=== PATIENT | male | born 1950 | race Caucasian/White ===

== ENCOUNTER → 2019-03-31 | Outpatient (CLI) | payer MEDICARE, OTHER ==
--- NOTE | 2019-03-31 14:15 | CT ---
EXAM DESCRIPTION: Chest w/Contrast : Computed Tomography. CLINICAL HISTORY: 68 years Male CHRONIC COUGH COMPARISON: CT scan of abdomen and pelvis on this visit. TECHNIQUE: Spiral-axial scans at 5 x 5 mm intervals through the lungs and thorax without IV contrast. 2.5 x 5 mm lung algorithm axial reconstructions. Coronal and sagittal 2.0 Mm reconstructions. No adverse reactions. Total Exam DLP: 623.76 mGy-cm. This exam was performed according to our departmental dose-optimization program which includes automated exposure control, adjustment of the mA and/or kV according to patient size and/or use of iterative reconstruction technique; to reduce radiation dose to as low as reasonably achievable (ALARA). Nodule measurements under 10 mm are given as mean value of 3 axes diameters. FINDINGS: Lungs and large airways: Bilateral lower lobe peripheral subpleural groundglass densities are symmetric and more prominent in the bases. Minimal pleural-parenchymal scarring in the right middle lobe. Pleural spaces: Minimal thickening. No effusion or infiltrate. Mediastinum and [place]: Small lymph nodes with no dominant masses or abnormal enhancement . Great vessels and Heart: Negative . Soft tissues of neck base, axillae, and chest wall: Unremarkable . Upper abdomen: Please see report on CT scan abdomen and pelvis today. Osseous structures: Spondylosis at multiple levels. Hemangioma in the T8 vertebral body and possibly a second hemangioma at the same level. Also hemangioma T1 vertebral body and anterior T11 vertebral body. IMPRESSION: 1. Chronic densities in the lungs with no abnormal nodule or focal mass. No infiltrate. Electronically signed by: Kris Spain MD 03/31/2019 2:13 PM CDT
--- NOTE | 2019-03-31 14:33 | CT ---
EXAM DESCRIPTION: Abdomen/Pelvis w/wo Contrast: Computed Tomography. CLINICAL HISTORY: FEVER UNSPECIFIED COMPARISON: CT scan abdomen and pelvis March 2011. CT scan of the chest with IV contrast on this visit. TECHNIQUE: Spiral-axial scans at 5 x 5 mm intervals through the abdomen and pelvis before and after 75 mL Optiray 320 nonionic IV contrast. No oral contrast. Coronal and sagittal 2.0 mm reconstructions. 5 mm Delayed helical-axial scans, liver through the pubic symphysis. No adverse reactions. Total Exam DLP 3347.57 mGy - cm. This exam was performed according to our departmental CT dose-optimization program which includes automated exposure control, adjustment of the mA and/or kV according to patient size and/or use of iterative reconstruction technique; to reduce radiation dose to as low as reasonably achievable (ALARA). FINDINGS: Liver, Stomach, Spleen, Adrenal Glands: Minimal steatosis of the liver. Stomach and other solid organs negative.. Pancreas, Gallbladder, Ducts: Gallbladder visualized. Other organs unremarkable. Kidneys and Ureters: 2 mm radiodense stone upper collecting system right kidney, new since prior study. Nonobstructing. 1.5 cm cyst stable upper pole right kidney. Mesentery: Negative. Aorta: Minimal atherosclerotic calcification. Small Bowel: Unremarkable. Terminal Ileum/Cecum: Normal caliber. Appendix negative. Colon: Fecal material throughout the colon with no significant distention. Minimal redundancy of the sigmoid with diverticula but no complications. Pelvic Organs: Bilateral prostate gland calcifications in the peripheral zone inferiorly. Spine and Bony Pelvis: Spondylosis at L4-5 and L5-S1 with bilateral foraminal stenosis L5-S1. Progressed since 2010.. Abdominal Wall/Back Soft Tissues: Massive fatty hernia extending into the left scrotum the left inguinal canal. Smaller right inguinal hernia with no bowel in either canal. Similar appearance bilaterally in 2011. Minimal diastases at the umbilicus but no bowel. IMPRESSION: 1. Minimal steatosis of the liver with right lobe enlargement but no significant change from the prior study. 2. New 2 mm stone upper collecting system right kidney nonobstructing. Stable cyst right upper pole. 3. Uncomplicated diverticulosis of the sigmoid colon which is minimally redundant. This is progressed since the prior study. 4. Bilateral foraminal stenosis L5-S1 has progressed since the prior study. 5. Bilateral fatty inguinal hernias larger on the left, may be stable since 2011. Not containing bowel. Correlate with clinical findings. Electronically signed by: Kris Spain MD 03/31/2019 2:32 PM CDT
== END ==
LOC: CT 08:48
PROVIDERS: ATTEND Family Medicine
DX: Z00.00 Encounter for general adult medical examination without abnormal findings (principal); K40.20 Bilateral inguinal hernia, without obstruction or gangrene, not specified as recurrent; K57.30 Diverticulosis of large intestine without perforation or abscess without bleeding; N20.0 Calculus of kidney; K76.0 Fatty (change of) liver, not elsewhere classified; R91.8 Other nonspecific abnormal finding of lung field; R05 Cough; R53.83 Other fatigue; I10 Essential (primary) hypertension; R73.01 Impaired fasting glucose; E78.5 Hyperlipidemia, unspecified; R50.9 Fever, unspecified; Z12.5 Encounter for screening for malignant neoplasm of prostate; Z13.220 Encounter for screening for lipoid disorders
CPT/HCPCS: 71260; 74178; 80053; 80061; 81001; 83036; 84443; 85025; 85651; 86140; G0103

== ENCOUNTER → 2019-04-05 | Outpatient (CLI) | payer MEDICARE, OTHER | LOC: SL 20:22 | PROVIDERS: ATTEND Family Medicine | DX: G47.30 Sleep apnea, unspecified (principal) ==

== ENCOUNTER → 2020-06-22 | Outpatient (CLI) | payer MEDICARE | LOC: YCFC.O 14:48 | PROVIDERS: ATTEND Family Medicine | DX: Z20.822 Contact with and (suspected) exposure to COVID-19 (principal) ==